=== PATIENT | female | born 1960 | race Asian ===

== ENCOUNTER 2023-03-20 07:55 | Outpatient (CLI) | payer MEDICARE, OTHER | END 2023-03-20 07:56 | disposition home or self-care (01) | LOC: BICMAMMO 07:55 | PROVIDERS: ATTEND Obstetrics & Gynecology | DX: Z13.820 Encounter for screening for osteoporosis (principal); M81.0 Age-related osteoporosis without current pathological fracture | CPT/HCPCS: 77080 ==